=== PATIENT | male | born 1975 | race African-American/Black ===

== ENCOUNTER 2020-06-14 13:37 | Emergency (ER) | payer OTHER ==
[~2020-06-14] VITALS: Ht 185.4 cm; Wt 113.4 kg
[~2020-06-14 13:37] MED LIST: AMOXICILLIN875 MG PO; BACTRIM DS TAB1 EACH PO; CARVEDILOL12.5 MG PO; CYCLOBENZAPRINE5 MG PO; ENTRESTO 49 MG1 EACH PO; FLONASE 0.05%50 MCG NASAL; GUAIFENESIN AC473 ML PO; IBUPROFEN 600600 M1 PO; LASIX 20 MG TAB20 MG PO; MAGIC MOUTHWASH SWISH&SPIT; MEDROLDOSEPACK PO; METFORMIN HCL500 MG PO; NOHOMEMEDICATIONS; NORCO 5-325 TA1 EAC2 PO; NORCO 5-325 TA1 EACH PO; PENICILLIN VK250 MG PO; PENICILLIN VK500 M1 PO; PHENERGAN 25 MG25 M1 PO; PROAIR HFA8.5 GM INH; TESSALON PERLE100 MG PO
[2020-06-14 13:41] VITALS: BP 154/81
[2020-06-14] MEDS ORDERED: DOXYCYCLINE 10100 MG PO (14:30)
== END 2020-06-14 14:47 | disposition home or self-care (01) ==
LOC: ER 13:37
DX: S30.860A Insect bite (nonvenomous) of lower back and pelvis, initial encounter (principal); L03.312 Cellulitis of back [any part except buttock and flank]; I50.9 Heart failure, unspecified; Z79.899 Other long term (current) drug therapy; W57.XXXA Bitten or stung by nonvenomous insect and other nonvenomous arthropods, initial encounter; Y93.89 Activity, other specified; Y92.89 Other specified places as the place of occurrence of the external cause; Y99.8 Other external cause status

== ENCOUNTER 2021-03-24 00:45 | Emergency (ER) | payer BC, OTHER ==
[~2021-03-24] VITALS: Ht 185.4 cm; Wt 110.7 kg
[~2021-03-24 00:45] MED LIST changes: +DOXYCYCLINE 10100 MG PO
[2021-03-24] MEDS ORDERED: JANTOVEN10 MG PO (01:00)
[2021-03-24] MEDS ORDERED: WARFARIN SODIUM5 MG PO (01:01)
[2021-03-24] MEDS ORDERED: K-DUR 20 MEQ T20 MEQ PO (01:02)
[2021-03-24 03:03] VITALS: BP 108/74
== END 2021-03-24 03:04 | disposition home or self-care (01) ==
LOC: ER 00:45
DX: S61.214A Laceration without foreign body of right ring finger without damage to nail, initial encounter (principal); W25.XXXA Contact with sharp glass, initial encounter; Y93.89 Activity, other specified; Y92.89 Other specified places as the place of occurrence of the external cause; Y99.8 Other external cause status

== ENCOUNTER 2021-11-04 10:28 | Emergency (ER) | payer OTHER ==
[~2021-11-04] VITALS: Ht 182.9 cm; Wt 108.9 kg
[~2021-11-04 10:28] MED LIST changes: +JANTOVEN10 MG PO; +K-DUR 20 MEQ T20 MEQ PO; +WARFARIN SODIUM5 MG PO
[2021-11-04 10:41] VITALS: BP 116/74
[2021-11-04 10:56] LABS: URINE BILIRUBIN NEGATIVE (Negative); URINE BLOOD NEGATIVE (Negative); URINE CLARITY CLEAR; URINE COLOR YELLOW; URINE GLUCOSE-RANDOM* 2+ (Negative); URINE KETONES NEGATIVE (Negative); URINE LEUKOCYTES-REFLEX NEGATIVE (Negative); URINE NITRITE-REFLEX NEGATIVE (Negative); URINE PROTEIN (DIPSTICK) NEGATIVE (Negative); URINE SPECIFIC GRAVITY >= 1.030 (1.005-1.035); URINE UROBILINOGEN 0.2 E.U./dl (0.2-1.0)
[2021-11-04] MEDS ORDERED: CYCLOBENZAPRINE5 MG PO (12:25)
[2021-11-04] MEDS ORDERED: NAPROSYN500 M1 PO (12:25)
== END 2021-11-04 12:25 | disposition home or self-care (01) ==
LOC: ER 10:28
PROVIDERS: Emergency Medicine
DX: M54.50 Low back pain, unspecified (principal); E11.9 Type 2 diabetes mellitus without complications; I50.9 Heart failure, unspecified; Z79.84 Long term (current) use of oral hypoglycemic drugs; Z79.899 Other long term (current) drug therapy